=== PATIENT | male | born 1965 | race Asian ===

== ENCOUNTER 2022-04-20 16:09 | Emergency (ER) | payer OTHER ==
[~2022-04-20] VITALS: Ht 175.3 cm; Wt 127.3 kg
[~2022-04-20 16:09] MED LIST: ATEN-73 PO; CETI-450 PO; MULT1TAB70 PO; PHEN30TA50 PO; SIMV-259 PO; TACR30OI4 TP
[2022-04-20] MEDS ORDERED: LOSA-381 PO (16:16)
[2022-04-20] MEDS ORDERED: CALC260T16 PO (16:16)
[2022-04-20] MEDS ORDERED: METF-1211 PO (16:16)
[2022-04-20] MEDS ORDERED: ACETAMINOPHEN 325 MG TABLET PO ONE (16:45)
[2022-04-20 16:53] LABS: COVID AG,FIA SOURCE NASOPHARYNGEAL
[2022-04-20 17:18] LABS: INFLUENZA TYPE A NEGATIVE FOR TYPE A (NEGATIVE); INFLUENZA TYPE B NEGATIVE FOR TYPE B (NEGATIVE)
[2022-04-20 18:16] VITALS: BP 132/68
== END 2022-04-20 18:28 | disposition home or self-care (01) ==
LOC: EMS 16:19
DX: U07.1 COVID-19 (principal); E11.9 Type 2 diabetes mellitus without complications; E78.00 Pure hypercholesterolemia, unspecified; I10 Essential (primary) hypertension; Z86.69 Personal history of other diseases of the nervous system and sense organs; Z88.1 Allergy status to other antibiotic agents; Z88.8 Allergy status to other drugs, medicaments and biological substances
CPT/HCPCS: 87804; 99283

== ENCOUNTER 2022-10-21 08:57 | Emergency (ER) | payer OTHER ==
[~2022-10-21] VITALS: Ht 177.8 cm; Wt 109.1 kg
[~2022-10-21 08:57] MED LIST changes: +CALC260T16 PO; +LOSA-381 PO; +METF-1211 PO
[2022-10-21] MEDS ORDERED: CHOL200059 PO (09:05)
[2022-10-21 10:13] VITALS: BP 122/70
== END 2022-10-21 10:16 | disposition home or self-care (01) ==
LOC: EMS 09:05
DX: L03.90 Cellulitis, unspecified (principal); E11.9 Type 2 diabetes mellitus without complications; E78.00 Pure hypercholesterolemia, unspecified; I10 Essential (primary) hypertension; Z98.890 Other specified postprocedural states
CPT/HCPCS: 82962; 99282